=== PATIENT | female | born 1985 | race Two or more races ===

== ENCOUNTER 2024-11-18 01:57 | Emergency (ER) | payer MEDICAID, OTHER ==
[~2024-11-18] VITALS: Ht 165.1 cm; Wt 72.7 kg
[2024-11-18 02:03] VITALS: BP 128/77; PULSE 100; RESP 18; TEMP 98.1; O2SAT 99
== END 2024-11-18 04:11 | disposition left against medical advice (07) ==
LOC: ER 01:57 → EDBD 01:57 → ER 04:11
DX: M79.672 Pain in left foot (principal); M79.671 Pain in right foot; Z53.21 Procedure and treatment not carried out due to patient leaving prior to being seen by health care provider

== ENCOUNTER 2025-01-25 04:54 | Emergency (ER) | payer MEDICAID ==
[~2025-01-25] VITALS: Ht 167.6 cm; Wt 78.7 kg
[2025-01-25 05:53] VITALS: BP 137/87; RESP 16; TEMP 98.1; O2SAT 100
--- NOTE | 2025-01-25 06:52 | ED.PDOC ---
Musculoskeletal HPI Comments 39 year old female presents to the ED with a chief complaint of RT shoulder pain onset 1 month. Patient states she wants her RT shoulder to be "wrapped." She fell about 1 month ago, has been experiencing pain since, states she has no further complaints. Denies any PMHx as well as chest pain, shortness of breath, head injury, headache, dizziness, nausea, vomiting, fever, chills. No other symptoms or modifying factors present at this time. Chief Complaint: Upper Extremity Time Seen by MD: 06:35 Primary Care Provider: n/a Reviewed Notes: Medications, Allergies Allergies: Coded Allergies: Aspirin (Verified Allergy, Unknown, 01/25/25) No Known Drug Allergy (Verified Allergy, Unknown, 11/18/24) Penicillins (Verified Allergy, Unknown, 01/25/25) Information Source: Patient Mode of Arrival: Ambulatory Location: Right Extremity Location: Shoulder Timing: Months Prehospital treatment: None Severity: Moderate Able to Move Extremity: Yes Bear Weight: Fully Pain: Moderate Mechanism: Spontaneous Circumstances: Fall Onset of Symptoms: After Trauma Symptoms: Pain DVT Risk Factors: NONE Associated signs and symptoms: Shoulder pain Past Medical History PAST MEDICAL HISTORY: Denies Surgical History: Denies all surgeries PCU RN History: No Pertinent PCU RN History Family History Family History: Reviewed,noncontributory to illness, No family hx of Cancer, No family hx of DM, No family hx of Heart kenyon, No family hx of HTN, No family hx ofKidney kenyon, No family hx of Liver kenyon, No family hx of Lung kenyon, No family hx of Stroke Social History Smoker: Other Alcohol: Denies ETOH Use Drugs: Methamphetamine Lives In: Homeless Constitutional: denies: chills, diaphoresis, fatigue, fever, malaise, sweats, weakness, others EENTM: denies: blurred vision, double vision, ear bleeding, ear discharge, ear drainage, ear pain, ear ringing, eye pain, eye redness, hearing loss, mouth pain, mouth swelling, nasal discharge, nose bleeding, nose congestion, nose pain, photophobia, tearing, throat pain, throat swelling, voice changes, others Respiratory: denies: cough, hemoptysis, orthopnea, SOB at rest, shortness of breath, SOB with excertion, stridor, wheezing, others Cardiovascular: denies: chest pain, dizzy spells, diaphoresis, Dyspnea on exertion, edema, irregular heart beat, left arm pain, lightheadedness, palpitations, PND, syncope, others Gastrointestinal: denies: abdomen distended, abdominal pain, blood streaked bowels, constipated, diarrhea, dysphagia, difficulty swallowing, hematemesis, melena, nausea, poor appetite, poor fluid intake, rectal bleeding, rectal pain, vomiting, others Genitourinary: denies: abnormal vagina bleeding, burning, dyspareunia, dysuria, flank pain, frequency, hematuria, incontinence, pain, , vagina discharge, urgency, others Neurological: denies: dizziness, fainting, headache, left sided numbness, left sided weakness, numbness, paresthesia, pre-existing deficit, right sided numbness, right sided weakness, seizure, speech problems, tingling, tremors, weakness, others Musculoskeletal: reports: others (RT shoulder pain); denies: back pain, gout, joint pain, joint swelling, muscle pain, muscle stiffness, neck pain Integumetry: denies: bruises, change in color, change in hair/nails, dryness, laceration, lesions, lumps, rash, wounds, others Allergic/Immunocompromised: denies: Difficulty Healing, Frequent Infections, Hives, Itching, others Hematologic/Lymphatic: denies: anemia, blood clots, easy bleeding, easy bruising, swollen glands, others Endocrine: denies: excessive hunger, excessive sweating, excessive thirst, excessive urination, flushing, intolerance to cold, intolerance to heat, unexplained weight gain, unexplained weight loss, others Psychiatric: denies: anxiety, bipolar disorder, depression, hopeless, panic disorder, schizophrenia, sleepless, suicidal, others All Other Systems: Reviewed and Negative Physical Exam General Appearance: Moderate Distress, Normal HEENT: Normal ENT Inspection, Pharynx Normal, TMs Normal Neck: Full Range of Motion, Non-Tender, Normal, Normal Inspection Respiratory: Chest Non-Tender, Lungs Clear, No Accessory Muscle Use, No Respiratory Distress, Normal Breath Sounds Cardiovascular: No Edema, No JVD, No Murmur, No Gallop, Normal Peripheral Pulses, Regular Rate/Rhythm Breast Exam: Deferred Gastrointestinal: No Organomegaly, Non Tender, No Pulsatile Mass, Normal Bowel Sounds, Soft Genitalia: Deferred Pelvic: Deferred Rectal: Deferred Extremities: No calf tenderness, Normal capillary refill, Normal inspection, Normal range of motion, Non-tender, No pedal edema Musculoskeletal : Apperance: Normal Neurologic: Alert, international accountant II-XII nml as Tested, No Motor Deficits, Normal Affect, Normal Mood, No Sensory Deficits Cerebellar Function: Normal Reflexes: Normal Skin: Dry, Normal Color, Warm Peripheral Pulses: 3+ Radial (R), 3+ Radial (L) Lymphatic: No Adenopathy Was a procedure done? Was a procedure done?: No Differential Diagnosis EXT Differential Diagnosis: Sprain, Strain X-Ray, Labs, Meds, VS Vital Signs Date Time Temp Pulse Resp B/P (MAP) Pulse Ox O2 Delivery O2 Flow Rate FiO2 01/25/25 05:53 98.1 87 16 137/87 (104) 100 98.1 01/25/25 05:53 98.1 87 16 137/87 (104) 100 98.1 Patient alert. Came in because of right arm pain. No trauma. Vitals stable. Ambulating. She is smoking. Counseled patient on effects of smoking for 15 minutes. Mostly vape. Abdomen is soft nontender. No sign of any distress. No sign of any injury. Reviewed her previous visit. Explained to the patient. Was told to follow up with her primary care physician. Was told to come back if there is any problem. Time of 1ST Reevaluation: 07:05 Reevaluation 1ST: Improved Patient Education/Counseling: Diagnosis, Treatment, Prognosis Family Education/Counseling: No Family Present Departure 1 Departure Time of Disposition: 07:28 Impression: Primary Impression: Musculoskeletal pain Additional Impression: Anxiety Disposition: 01 HOME / SELF CARE / HOMELESS Condition: Good Discharged With: Self Critical Care Note Critical Care Time?: No Stability Stability form required: No Heart Score Heart Score: Heart Score Response (Comments) Value History N/A 0 EKG N/A 0 Age N/A 0 Risk Factors N/A 0 Troponin N/A 0 Total 0 I personally scribed for CLIFFORD CORTEZ MD ([email or web address]) on 01/25/25 at 06:52. Electronically submitted by Tamara Brown ([email or web address]). CLIFFORD CORTEZ MD Jan 25, 2025 06:52
== END 2025-01-25 08:21 | disposition home or self-care (01) ==
LOC: ER 04:54
DX: M79.18 Myalgia, other site (principal); M25.511 Pain in right shoulder; F41.9 Anxiety disorder, unspecified; Z88.0 Allergy status to penicillin